=== PATIENT | female | born 1970 | race Caucasian/White ===

== ENCOUNTER 2017-08-14 09:57 | Emergency (ER) | payer OTHER ==
[~2017-08-14] VITALS: Ht 162.6 cm; Wt 79.4 kg
[~2017-08-14 09:57] MED LIST: MEDROL4 M2 PO; PROAIR HFA8.5 GM INH; TESSALON PERLE100 M1 PO; ZITHROMAX250 M2 PO
--- NOTE | 2017-08-14 11:12 | ED NEURO DEFICIT/STROKE ---
History of Present Illness General Chief Complaint: General Adult Stated Complaint: SENT IN FOR STROKE SYMPTOMS Source: patient Exam Limitations: no limitations Vital Signs & Intake/Output Vital Signs & Intake/Output Vital Signs Date Time Temp Pulse Resp B/P B/P Pulse O2 O2 Flow FiO2 Mean Ox Delivery Rate 08/14 1231 98.9 59 20 124/64 97 Room Air 08/14 1008 98.4 75 18 129/83 98 Room Air Allergies Coded Allergies: Penicillins (Severe, THROAT CLOSES 01/23/16) Reconcile Medications No Known Home Medications Triage Note: 46 YO FEMALE SENT TO ER BY DR FOR R/O STROKE. PT STATES YESTERDAY SHE WAS HAVING L NUMBESS BODY NUMBESS. STATES TODAY SHE ONLY HAS TINGLING IN HER L ARM. STATES HER HEAD "FEELS FOGGY" PT A&O X3. NEUROS INTACT. EKG COMPELTED ON ARRIVAL. Triage Nurses Notes Reviewed? yes Onset: Abrupt Duration: better, intermittent Timing: recent history Severity: moderate : No Patient currently breastfeeds: No HPI: Patient is a 46-year-old female with an unremarkable past medical history however is a 2 pack-a-day smoker who presents emergency room stating that a few days ago she woke up complaining of a stiff neck which symptoms have improved however in the past 24 hours patient while driving yesterday had acute onset of entire left body from head to toe paresthesia and numbness that has improved and is only complaining currently of left arm numbness. Patient denies any symptoms of fever chills headache blurred vision slurred speech neck pain chest pain shortness of breath dyspnea on exertion weakness difficulty speaking. Patient was evaluated yesterday by primary care doctor in his thighs presents the emergency room for concerns of stroke. Past History Travel History Traveled to [place] past 21 day No Medical History Any Pertinent Medical History? none Neurological: NONE EENT: NONE Cardiovascular: HEART MURMUR Respiratory: NONE Gastrointestinal: NONE Hepatic: NONE Renal: NONE Musculoskeletal: NONE Psychiatric: NONE Endocrine: NONE Blood Disorders: NONE Cancer(s): NONE RN FLOAT/Reproductive: NONE Surgical History Surgical History: non-contributory Psychosocial History What is your primary language Marshallese Tobacco Use: Current Daily Use Family History Hx Contributory? No Review of Systems Review of Systems Constitutional: Reports: no symptoms. EENTM: Reports: no symptoms. Respiratory: Reports: no symptoms. Cardiovascular: Reports: no symptoms. GI: Reports: no symptoms. Genitourinary: Reports: no symptoms. Musculoskeletal: Reports: no symptoms. Skin: Reports: no symptoms. Neurological/Psychological: Reports: see HPI, numbness, paresthesia. Hematologic/Endocrine: Reports: no symptoms. Immunologic/Allergic: Reports: no symptoms. All Other Systems: Reviewed and Negative Physical Exam Physical Exam General Appearance: no apparent distress, alert, comfortable Head: atraumatic Eyes: Bilateral: normal appearance, PERRL, EOMI. Ears, Nose, Throat: normal ENT inspection, moist mucous membrane, hearing grossly normal, Tympanic normal, pharynx normal Neck: normal inspection, supple, full range of motion Respiratory: normal breath sounds, chest non-tender, no respiratory distress Cardiovascular: regular rate/rhythm Gastrointestinal: normal bowel sounds, soft, non-tender Extremities: normal range of motion Psychiatric: awake, alert, oriented x 3 Cranial Nerves: normal hearing, normal speech, PERRL Coordination/Gait: normal finger to nose Motor/Sensory: sensory deficit Skin: intact, normal color, warm/dry Comments: Bilateral upper extremity and lower extremity myotomes intact Noted upper extremity decreased generalized sensation of dermatomes to left extremity compared to right extremity with full myotomes Bilateral lower extremity fully intact myotomes Pedal pulses and radial pulses +2 intact NIH stroke scale 1 Positive Spurling's test with ipsilateral side reproducing left arm paresthesia Core Measures CVA/TIA Diagnosis: No Sepsis Present: No Sepsis Focused Exam Completed? No Progress Differential Diagnosis: acute glaucoma, Lopez's Palsy, drug intoxication, electrolyte imbalance, encephalitis, hypoglycemia, intracranial Hem., intracranial mass/tumor, meningitis, migraine PIZARRO, seizure disorder, stroke, subarachnoid Hem., vertebrobasilar insuff. Plan of Care: Orders Procedure Date/time Status Add-on Test (ER Only) 08/14 1144 Active HUMAN BETA HCG SCREEN 08/14 1122 Complete TROPONIN LEVEL 08/14 1112 Complete MAGNESIUM 08/14 1112 Complete COMPREHENSIVE METABOLIC PANEL 08/14 1112 Complete CBC WITHOUT DIFFERENTIAL 08/14 1112 Complete EKG 08/14 1000 Active Laboratory Tests 08/14/17 1122: Anion Gap 10, Estimated GFR > 60, BUN/Creatinine Ratio 15.0, Glucose 88, Calcium 10.0, Magnesium 1.9, Total Bilirubin 0.4, AST 18, ALT 20, Alkaline Phosphatase 56, Troponin I < 0.01, Total Protein 7.5, Albumin 4.2, Globulin 3.3, Albumin/ Globulin Ratio 1.3, Total Beta HCG NEGATIVE, CBC w Diff NO MAN DIFF REQ, RBC 4.83, MCV 90.5, MCH 31.1 H, MCHC 34.4, RDW 13.6, MPV 7.6, Gran % 67.5, Lymphocytes % 25.5, Monocytes % 5.3, Eosinophils % 1.2, Basophils % 0.5, Absolute Granulocytes 7.2 H, Absolute Lymphocytes 2.7, Absolute Monocytes 0.6, Absolute Eosinophils 0.1, Absolute Basophils 0.1 Patient on initial presentation is resting complete bedside minimal suspicion of stroke however CT head will be examined, NAH stroke scale 1 patient is normotensive patient also has positive Spurling's test and complained of neck pain prior to the onset of symptoms there is suspicion of cervical radiculopathy Patient has a nontender cervical spine and no muscular tenderness on exam of the neck full active range of motion no concerns of discitis or spinal abscess PERC ZERO Patient had unremarkable CT scan and blood work as well as EKG. Upon discharge patient looks well no apparent distress has normal steady gait Patient has no questions and was strongly advised to follow-up as instructed in the instructions Diagnostic Imaging: Viewed by Me: CT Scan. Radiology Impression: no acute abnormality, no fracture Initial ED EKG: normal p-waves, normal QRS complex, normal sinus rhythm, 75 BPM, NSR Comments: PATIENT: ANTHONY VARGAS PRESENT AGE: 46 PATIENT ACCOUNT NO: [id number] : 71 LOCATION: [facility] ORDERING PHYSICIAN: Vasyl LESLIE SERVICE DATE: 08/14/17 EXAM TYPE: CAT - CT HEAD WO IV CONTRAST EXAMINATION: CT HEAD WITHOUT CONTRAST CLINICAL INFORMATION: Left arm numbness and foggy sensation. COMPARISON: None. TECHNIQUE: Contiguous axial imaging was performed from the skull base to vertex without intravenous administration of contrast. DLP: 614 mGy-cm. FINDINGS: There is no intracranial hemorrhage, large infarction, or mass lesion. There is no extra-axial collection. The ventricles are normal in size and configuration without evidence of hydrocephalus. The paranasal sinuses are clear. The mastoids and middle ear cavities are clear. IMPRESSION: No acute intracranial abnormality. DICTATED BY: July Hernandez MD DATE/TIME DICTATED:06/19/18 / 1229 [employer] MANAGER:LINDY DATE/TIME TRANSCRIBED:08/14/17 Departure Departure Disposition: HOME OR SELF CARE Condition: Stable Clinical Impression Primary Impression: Radicular neuropathy Referrals: Sabine ESTRADA,Lindsay Matthew MD,Rolly (PCP/Family) Additional Instructions: As discussed begin the prescription of Medrol Dosepak for inflammation, This week please follow-up with neurosurgeon Dr. FERRARA for your symptoms, if symptoms worsen or if you develop new concerning symptoms return to emergency room. Please discontinue smoking Prescriptions waiting at [facility] Departure Forms: Customer Survey General Discharge Information Prescriptions: Current Visit Scripts Methylprednisolone. (Medrol) 1 DP PO AD #1 DP 6 on day 1 then reduce by one tablet daily until gone
[2017-08-14 11:42] LABS: ABSOLUTE BASOPHIL COUNT 0.1 /CUMM (0.0-0.2); ABSOLUTE EOSINOPHIL COUNT 0.1 /CUMM (0.0-0.7); ABSOLUTE GRANULOCYTE CT 7.2 /CUMM (1.4-6.5); ABSOLUTE LYMPH COUNT 2.7 /CUMM (1.2-3.4); ABSOLUTE MONOCYTE COUNT 0.6 /CUMM (0.10-0.60); BASOPHIL % 0.5 % (0.0-2.0); EOSINOPHIL % 1.2 % (0-5); GRANULOCYTE % 67.5 % (42.2-75.2); HEMATOCRIT 43.7 % (37-47); MEAN CORPUSCULAR HGB 31.1 PG (27.0-31.0); MEAN CORPUSCULAR HGB CONC 34.4 G/DL (33.0-37.0); MEAN CORPUSCULAR VOLUME 90.5 FL (81.0-99.0); MEAN PLATELET VOLUME 7.6 FL (7.4-10.4); PLATELET COUNT 356 /CUMM (130-400); RBC DISTRIBUTION WIDTH 13.6 % (11.5-14.5); RED BLOOD CELL CT 4.83 /CUMM (4.20-5.40); WHITE BLOOD CELL COUNT 10.6 /CUMM (4.8-10.8)
[2017-08-14 12:31] VITALS: BP 124/64
--- NOTE | 2017-08-14 12:37 | CT SCAN REPORT ---
EXAMINATION: CT HEAD WITHOUT CONTRAST CLINICAL INFORMATION: Left arm numbness and foggy sensation. COMPARISON: None. TECHNIQUE: Contiguous axial imaging was performed from the skull base to vertex without intravenous administration of contrast. DLP: 614 mGy-cm. FINDINGS: There is no intracranial hemorrhage, large infarction, or mass lesion. There is no extra-axial collection. The ventricles are normal in size and configuration without evidence of hydrocephalus. The paranasal sinuses are clear. The mastoids and middle ear cavities are clear. IMPRESSION: No acute intracranial abnormality.
[2017-08-14] MEDS ORDERED: MEDROL4 M2 PO (12:49)
== END 2017-08-14 13:16 ==
LOC: ERH 09:57
PROVIDERS: Physician Assistant
DX: M54.10 Radiculopathy, site unspecified (principal)
CPT/HCPCS: 93005; 93010